=== PATIENT | male | born 1980 | race Caucasian/White ===

== ENCOUNTER 2016-12-20 19:27 | Emergency (ER) | payer OTHER ==
[2016-12-20 21:04] VITALS: BP 143/98
== END 2016-12-20 21:04 | disposition home or self-care (01) ==
LOC: ED 19:27
DX: F10.229 Alcohol dependence with intoxication, unspecified (principal)

== ENCOUNTER 2017-01-07 18:40 | Emergency (ER) | payer OTHER ==
[~2017-01-07] VITALS: Ht 177.8 cm; Wt 113.4 kg
[2017-01-07 20:01] VITALS: BP 139/69
== END 2017-01-07 20:01 | disposition other institution (70) ==
LOC: ED 18:40
DX: Z02.89 Encounter for other administrative examinations (principal)

== ENCOUNTER 2017-01-13 14:20 | Emergency (ER) | payer OTHER ==
[2017-01-13 15:37] VITALS: BP 139/95
== END 2017-01-13 15:37 | disposition home or self-care (01) ==
LOC: ED 14:20
DX: F10.129 Alcohol abuse with intoxication, unspecified (principal); S06.9X0A Unspecified intracranial injury without loss of consciousness, initial encounter; R03.0 Elevated blood-pressure reading, without diagnosis of hypertension; Z88.0 Allergy status to penicillin; X58.XXXA Exposure to other specified factors, initial encounter; Y93.89 Activity, other specified; Y99.8 Other external cause status; Y92.89 Other specified places as the place of occurrence of the external cause

== ENCOUNTER 2017-01-17 14:32 | Inpatient (IN) | payer OTHER ==
[~2017-01-17] VITALS: Ht 175.3 cm; Wt 105.8 kg
--- NOTE | 2017-01-17 14:46 | NUR ---
PT BIBA C/O SEIZURE EPISODE TODAY WHILE PT WAS WAITING FOR PRESCRIPTION TO BE FILLED UP. PT IS WITH HIS MOM. PT HAS HZ OF SEIZURE. PLACED PT ON CM, VSS. PT'S SIDERAILS UP X 2. PT GIVEN CALL LIGHT. AWAITING DR JOHNSON.
[2017-01-17 15:30] LABS: BASOPHIL % 0.4 % (0-2); PLATELET COUNT 214 x10^3mcL (130-400)
[2017-01-17 15:32] LABS: CALCIUM 8.8 mg/dL (8.5-10.1); CARBON DIOXIDE 19.2 mmol/L (21-32); CHLORIDE SERUM 101 mmol/L (98-107); CREATININE SERUM 1.4 mg/dL (0.7-1.3); GFR1 > 60 mL/min; GLUCOSE SERUM 139 mg/dL (74-106); POTASSIUM SERUM 3.8 mmol/L (3.5-5.1); SODIUM SERUM 140 mmol/L (136-145)
[2017-01-17 15:37] LABS: ALBUMIN 3.9 g/dL (3.4-5.0); ALKALINE PHOSPHATASE 88 U/L (46-116); AST/SGOT 98 U/L (15-37); BILIRUBIN TOTAL 0.7 mg/dL (0.20-1.00); TOTAL PROTEIN, SERUM 7.1 g/dL (6.4-8.2)
--- NOTE | 2017-01-17 15:40 | NUR ---
MEDICATED PT ORDERED, SEE MAR. WILL MONITOR FOR ADVERSE REACTIONS
[2017-01-17 15:48] LABS: FREE T4 0.77 ng/dL (0.76-1.46); FREE THYROXINE INDEX 2.2 ug/dL (1.4-4.5); RED CELL DISTRIBUTION WIDTH 16.2 % (11.5-14.5); T4(THYROXINE) 7.2 ug/dL (4.7-13.3)
[2017-01-17 16:16] LABS: T3 TOTAL 1.3 ng/mL
[2017-01-17 17:10] LABS: ALT/SGPT 62 U/L (16-63)
[2017-01-17] MEDS ORDERED: AMANTADINE HCL100 M1 PO (17:21)
[2017-01-17] MEDS ORDERED: COLCHICINE0.6 M1 PO (17:21)
[2017-01-17] MEDS ORDERED: ARICEPT5 MG PO (17:21)
[2017-01-17] MEDS ORDERED: LASIX20 MG PO (17:22)
[2017-01-17] MEDS ORDERED: KEPPRA500 MG PO (17:22)
[2017-01-17] MEDS ORDERED: ALLOPURINOL100 MG PO (17:22)
[2017-01-17 17:51] VITALS: BP 134/90
--- NOTE | 2017-01-17 18:06 | NUR ---
RECEIVED PATIENT FROM ED VIA GUERNEY, ALERT AND ORIENTED, MOTHER AT BEDSIDE, SEIZURE PRECATIONS IN PLACE, NO NAUSEA AT THIS TIME, ORIENTED PATIENT TO ROOM AND SURROUNDINGS, BED IN LOW POSITION, BED RAILS UP X 2, CALL LIGHT WITHIN REACH, WILL ENDORSE CARE TO TOD HANSON
--- NOTE | 2017-01-17 18:15 | NUR ---
ASSUMED CARE OF THIS PATIENT. AWAKE,ALERT AND ORIENTED X 3 WITH SOME FORGETFULNESS. WORD SEARCHING NOTED. NO REPORT OF PAIN. ABLE TO MOVE ALL EXTREMITIES WITHOUT DIFFICULTY. VITAL SIGNS WERE STABLE.
--- NOTE | 2017-01-17 19:30 | NUR ---
RECEIVED REPORT FROM MARGIE BARON. PT RESTING IN BED COMFORTABLY IN NO ACUTE DISTRESS OR DISCOMFORT. AAOX3. DENIES OF TERRY/DIZZINESS AT THIS TIME. ON TELE MON 40 ST. DENIES OF ANY CHEST DISCOMFORT. PER PULSES STRONG. NEG ON EDEMA. IN RA WITH SAT OF 98%. BREATHING EVENLY AND UNLABORED. NO SOB NOTED. LUNGS CTA. BS ACTIVE, ABD SOFT AND NON DISTENDED. LAST BM 01/16/17 FORMED STOOL PER PT. VOIDS FREELY WITHOUT ANY PAIN. GEN WEAKNESS. PT HAS R ANKLE OPEN SORE THAT IS BARRY. PHOTOGRAPH TAKEN. PT UNAWARE OF HOW IT WAS ACQUIRED. DENIES OF ANY PAIN AT THIS TIME. IV ON L HAND PATENT WITH NS RUNNING AT 80 CC/HR. SAFETY MEASURES ENSURED. FAMILY ON THE BEDSIDE. SZ AND ASPIRATION PREC ENFORCED. CALL LIGHT WITHIN REACH. WILL CONT TO CLOSELY MONITOR PT.
--- NOTE | 2017-01-17 19:45 | NUR ---
RECEIVED REPORT FROM MARGIE BARON. PT RESTING IN BED COMFORTABLY IN NO ACUTE DISTRESS OR DISCOMFORT. AAOX3. DENIES OF TERRY/DIZZINESS AT THIS TIME. ON TELE MON 4 SR. DENIES OF ANY CHEST DISCOMFORT. PER PULSES STRONG. NEG ON EDEMA. IN RA WITH SAT OF 98%. BREATHING EVENLY AND UNLABORED. NO SOB NOTED. LUNGS CTA. BS ACTIVE, ABD SOFT AND NON DISTENDED. LAST BM 01/16/17 FORMED STOOL PER PT. VOIDS FREELY WITHOUT ANY PAIN. GEN WEAKNESS. 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 PHOTOGRAPH TAKEN. PT UNAWARE OF HOW IT WAS ACQUIRED. DENIES OF ANY PAIN AT THIS TIME. IV ON L HAND PATENT WITH NS RUNNING AT 80 CC/HR. SAFETY MEASURES ENSURED. FAMILY ON THE BEDSIDE. SZ AND ASPIRATION PREC ENFORCED. CALL LIGHT WITHIN REACH. WILL CONT TO CLOSELY MONITOR PT.
[2017-01-17 20:19] LABS: CHOLESTEROL/HDL RATIO 2.4
[2017-01-17 21:26] VITALS: BP 130/83
--- NOTE | 2017-01-17 23:30 | NUR ---
PT ALERT AND AWAKE. IN NO ACUTE DISTRESS. ABLE TO OBEY COMMANDS. THOUGHT PROCESS COHERENT. NEG ON DROOP. SPEECH CLEAN. MEMORY INTACT. DENIES OF EXPERIENCING ANY AURA. SAFETY MEASURES ENSURED. PT ON SZ AND ASP PREC. HOB ELEVATED. CALL LIGHT WITHIN REACH. WILL CONT TO MONITOR PT.
--- NOTE | 2017-01-18 03:30 | NUR ---
PT EASILY AROUSABLE. CLEAR SPEECH. OBEYS COMMAND. THOUGHT PROCESS COHERENT. NEG ON PARALYSIS. DENIES OF AURA. AAOX4. SAFETY MEASURES ENSURED. CALL LIGHT WITHIN REACH,
[2017-01-18 04:49] LABS: microscopic required? NO
[2017-01-18 04:59] LABS: urine erythrocyte NEGATIVE (NEGATIVE)
[2017-01-18 05:02] LABS: AMPHETAMINE QUAL UR NONE DETECTED (NEG <=1000)
--- NOTE | 2017-01-18 05:17 | NUR ---
PT SLEPT COMFORTABLY THROUGH OUT THE NIGHT. WAS IN NO ACUTE DISTRESS OR DISCOMFORT. INSTRUCTED PT TO CALL IF EXPERIENCING AN AURA/HALLUCINATIONS. SAFETY MEASURES ENSURED. CALL LIGHT WITHIN REACH, SZ AND ASP PREC ENFORCED.
[2017-01-18 05:26] VITALS: BP 134/78
[2017-01-18 06:04] LABS: BASOPHIL % 0.2 % (0-2); PLATELET COUNT 155 x10^3mcL (130-400)
[2017-01-18 06:08] LABS: CALCIUM 8.1 mg/dL (8.5-10.1); CARBON DIOXIDE 25.4 mmol/L (21-32); CHLORIDE SERUM 102 mmol/L (98-107); CREATININE SERUM 0.8 mg/dL (0.7-1.3); GFR1 > 60 mL/min; GLUCOSE SERUM 95 mg/dL (74-106); MAGNESIUM 2.1 mg/dL (1.8-2.4); PHOSPHOROUS 4.2 mg/dL (2.5-4.9); SODIUM SERUM 140 mmol/L (136-145)
[2017-01-18 06:52] LABS: RED CELL DISTRIBUTION WIDTH 16.5 % (11.5-14.5)
--- NOTE | 2017-01-18 07:42 | NUR ---
PT RECEIVED DURING CHANGE OF SHIFT, A/OX4, SZ PRECAUTIONS, HX TRAUMATIC BRAIN INJURY, MESH TO LT SIDE OF HEAD, PT OBEYS COMMANDS, CLEAR SPEACH, EYES PERRLA, PT'S VERBAL RESPONSE SLIGHTLY DELAYED, DENIES CHEST PAIN, PULSES PRESENT NO EDEMA NOTED, LUNGS CTA ON RA, DENIES SOB, BREATHING EVEN AND UNLABORED, BOWEL SOUNDS ACTIVE, PT VOIDS USING URINAL, GENERALIZED WEAKNESS, DRESSING WITH TATE BANDAGE TO RT FOOT CDI, POST DEBRIDMENT, PT STATES PAIN IS TOLERABLE IN RT FOOT AT 2/10, IV TO LT HAND INFUSING NS AT 80ML/HR, IV WNL, NO REDNESS NO SWELLING, CALM AND COOPERATIVE, CALL LIGHT WITHIN REACH, WILL CONTINUE TO MONITOR.
--- NOTE | 2017-01-18 08:13 | NUR ---
DR. DHILLON AND RESIDENTS MAKING ROUNDS, PLAN OF CARE DISCUSSED.
--- NOTE | 2017-01-18 09:33 | NUR ---
PT DENIES SOB, DENIES PAIN, RECEIVED MED EDUCATION, CALL LIGHT WITHIN REACH, WILL CONTINUE TO MONITOR.
[2017-01-18 09:38] VITALS: BP 135/87
--- NOTE | 2017-01-18 10:19 | NUR ---
PT D/C'D OWN IV, WILL ATTEMPT TO INSERT NEW IV.
--- NOTE | 2017-01-18 11:46 | NUR ---
PT DENIES SOB, DENIES PAIN, WATCHING TV, CALL LIGHT WITHIN REACH, WILL CONTINUE TO MONITOR.
--- NOTE | 2017-01-18 12:24 | NUR ---
PT DENIES SOB, DENIES PAIN, WATCHING TV, CALL LIGHT WITHIN REACH, WILL CONTINUE TO MONITOR.
[2017-01-18 13:00] VITALS: BP 124/86
--- NOTE | 2017-01-18 13:07 | NUR ---
PT WATCHING TV, DENIES SOB, DENIES PAIN, CALL LIGHT WITHIN REACH, WILL CONTINUE TO MONITOR.
--- NOTE | 2017-01-18 14:38 | NUR ---
US OF LEGS FINISHED, DR. CYR SAW PT, DR. ROTH CURRENTLY AT BEDSIDE, MOTHER AT BEDSIDE, CALL LIGHT WITHIN REACH, WILL CONTINUE TO MONITOR.
--- NOTE | 2017-01-18 15:43 | NUR ---
PT DENIES SOB, DENIES PAIN, MOTHER AT BEDSIDE, CALL LIGHT WITHIN REACH, WILL CONTINUE TO MONITOR.
--- NOTE | 2017-01-18 16:50 | NUR ---
PT DENIES SOB, DENIES PAIN, MOTHER AT BEDSIDE, CALL LIGHT WITHIN REACH, WILL CONTINUE TO MONITOR.
--- NOTE | 2017-01-18 17:10 | NUR ---
PT'S DRESSING TO RT FOOT CHANGED, THERAHONEY APPLIED, ADAPTIC DRESSING, GUAZE, AND TATE BANDAGE APPLIED.
--- NOTE | 2017-01-18 18:11 | NUR ---
PT C/O BURNING IN IV AFTER POTASSIUM WAS STARTED, RATE DOWN TO 40ML/HR, PT MADE AWARE TO NOTIFY RN IF BURNING CONTINUES, CALL LIGHT WITHIN REACH, WILL ENDORSE PT TO NEXT SHIFT.
[2017-01-18 18:33] VITALS: BP 134/91
[2017-01-18 19:15] VITALS: BP 131/84
--- NOTE | 2017-01-18 19:15 | NUR ---
RECEIVED PT AWAKE ALERT TO NAME PLACE AND BIRTHDATE,SLOW TO RESPONSE BUT ANSWERS QUESTIONS APPROPRIATELY.ON SEIZURE PRECAUTIONS.PADDED RAILS IN PLACE.NO SEIZURE ACTIVITY NOTED AT THIS TIME.DENIES ANY PAIN AT THIS TIME.BP 131/84 MMHG,HR 70.DRESSING TO R FOOT,WRAPPED WITH TATE WRAP.ENCOURAGED TO CALL FOR ASSISTANCE AT ALL TIMES.WILL CONTINUE TO MONITOR.
[2017-01-18 21:33] VITALS: BP 145/94
--- NOTE | 2017-01-19 04:55 | NUR ---
PT SLEPT WELL ALL NIGHT.NO SEIZURE ACTIVITY NOTED.PADDED RAILS IN PLACED.ON ATIVAN 1 MG PO RTC FOR ALCOHOL WITHDRAWAL PROTOCOL.TOLERATED K-RIDER GIVEN LAST NIGHT.ALL NEEDS MET.WILL CONTINUE TO MONITOR.
[2017-01-19 05:56] VITALS: BP 129/91
[2017-01-19 06:08] LABS: BASOPHIL % 0.4 % (0-2); PLATELET COUNT 142 x10^3mcL (130-400)
[2017-01-19 06:28] LABS: CALCIUM 8.4 mg/dL (8.5-10.1); CHLORIDE SERUM 106 mmol/L (98-107); CREATININE SERUM 0.8 mg/dL (0.7-1.3); GFR1 > 60 mL/min; GLUCOSE SERUM 93 mg/dL (74-106); MAGNESIUM 1.9 mg/dL (1.8-2.4); POTASSIUM SERUM 3.3 mmol/L (3.5-5.1); SODIUM SERUM 143 mmol/L (136-145)
[2017-01-19 06:48] LABS: RED CELL DISTRIBUTION WIDTH 16.3 % (11.5-14.5)
--- NOTE | 2017-01-19 06:50 | NUR ---
BP THIS AM REPORTED @ 129/91 MMHG,HR 111.BP RECHECKED @ 128/84 MMHG,HR 98.DENIES CHESTPAIN.WILL CONTINUE TO MONITOR.
[2017-01-19 06:51] VITALS: BP 128/84
--- NOTE | 2017-01-19 07:27 | NUR ---
PT RECEIVED DURING CHANGE OF SHIFT, PT ASLEEP BUT AROUSABLE, A/OX3, OBEYS COMMANDS, SPEACH SLOW AND CLEAR, NO TELE, DENIES CHEST PAIN, PULSES PRESENT NO EDEMA NOTED, LUNGS CTA ON RA, DENIES SOB, BREATHING EVEN AND UNLABORED, LBM 01/16/17, PT ABLE TO VOID, MILD GENERALIZED WEAKNESS, DRESSING TO RT FOOT CDI, WILL CHANGE DRESSING PER ORDERS, DENIES PAIN AT THIS TIME, IV TO LT HAND INFUSING NS AT 80ML/HR, CALL LIGHT WITHIN REACH, WILL CONTINUE TO MONITOR.
--- NOTE | 2017-01-19 08:55 | NUR ---
PT DENIES PAIN, DENIES SOB, WATCHING TV, CALL LIGHT WITHIN REACH, WILL CONTINUE TO MONITOR.
[2017-01-19 08:58] VITALS: BP 138/85
--- NOTE | 2017-01-19 10:13 | NUR ---
PT DENIES SOB, DENIES PAIN, WATCHING TV, CALL LIGHT WITHIN REACH, WILL CONTINUE TO MONITOR.
[2017-01-19 10:27] VITALS: BP 138/85
--- NOTE | 2017-01-19 11:12 | NUR ---
PT DENIES SOB, DENIES PAIN, MOTHER CALLED TO ASK ABOUT PLAN OF CARE, CALL LIGHT WITHIN REACH, WILL CONTINUE TO MONITOR.
--- NOTE | 2017-01-19 12:38 | NUR ---
PT DENIES SOB, DENIES PAIN, EATING LUNCH, CALL LIGHT WITHIN REACH, WILL CONTINUE TO MONITOR.
[2017-01-19] MEDS ORDERED: KEP500 PO (12:40)
[2017-01-19 12:49] VITALS: BP 131/83
--- NOTE | 2017-01-19 13:11 | NUR ---
PT DENIES SOB, DENIES PAIN, WATCHING TV, CALL LIGHT WITHIN REACH, PT AT 70% OF LUNCH, CALL LIGHT WITHIN REACH, WILL CONTINUE TO MONITOR.
--- NOTE | 2017-01-19 14:06 | NUR ---
PT'S DRESSING CHANGED PER 'S ORDERS, PHOTO DOCUMENTATION TAKEN, NO S/S OF INFECTION, DISCHARGE INSTRUCTIONS GIVEN TO PT AND FATHER, VERBALIZED UNDERSTANINDING, ALL QUESTIONS ANSWERED, IV DC'D CATHETER INTACT, ARMBAND DC'D, SUPPLIES FOR DRESSING CHANGE GIVEN, PT AND VISITORS ESCORTED DOWNSTAIRS BY PHILIP RYAN.
== END 2017-01-19 14:10 | disposition home or self-care (01) | DRG 26 ==
LOC: ED 14:32 → DU 16:51
PROVIDERS: Family Medicine; Specialist; ADMIT Family Medicine
PROC: 0HBMXZZ Excision of Right Foot Skin, External Approach (ICD-10-PCS; principal; 2017-01-18)
DX: G40.901 Epilepsy, unspecified, not intractable, with status epilepticus (principal); N17.0 Acute kidney failure with tubular necrosis; K72.90 Hepatic failure, unspecified without coma; F10.10 Alcohol abuse, uncomplicated; E78.5 Hyperlipidemia, unspecified; L97.311 Non-pressure chronic ulcer of right ankle limited to breakdown of skin; M10.9 Gout, unspecified; Z87.820 Personal history of traumatic brain injury; Z68.34 Body mass index [BMI] 34.0-34.9, adult
CPT/HCPCS: 80307; 83880; 84439; G0480; J1940; J1953; J2405; J3480; J3490; J7030; Q0092

== ENCOUNTER 2017-02-18 17:56 | Emergency (ER) | payer OTHER ==
[~2017-02-18] VITALS: Ht 172.7 cm; Wt 104.3 kg
[~2017-02-18 17:56] MED LIST: ALLOPURINOL100 MG PO; AMANTADINE HCL100 M1 PO; ARICEPT5 MG PO; COLCHICINE0.6 M1 PO; KEP500 PO; KEPPRA500 MG PO; LASIX20 MG PO
[2017-02-18 18:16] VITALS: BP 152/91
== END 2017-02-18 18:48 | disposition other institution (70) ==
LOC: ED 17:56
DX: S60.512A Abrasion of left hand, initial encounter (principal); S60.511A Abrasion of right hand, initial encounter; G40.909 Epilepsy, unspecified, not intractable, without status epilepticus; F10.129 Alcohol abuse with intoxication, unspecified; M10.9 Gout, unspecified; Z79.899 Other long term (current) drug therapy; Z88.0 Allergy status to penicillin; W22.8XXA Striking against or struck by other objects, initial encounter; Y93.89 Activity, other specified; Y92.89 Other specified places as the place of occurrence of the external cause; Y99.8 Other external cause status

== ENCOUNTER 2017-06-25 10:41 | Inpatient (IN) | payer OTHER ==
[~2017-06-25] VITALS: Ht 175.3 cm; Wt 99.3 kg
[2017-06-25 11:21] LABS: BASOPHIL % 0.6 % (0-2); PLATELET COUNT 164 x10^3mcL (130-400)
[2017-06-25 11:26] LABS: RED CELL DISTRIBUTION WIDTH 15.7 % (11.5-14.5)
[2017-06-25 11:27] LABS: CALCIUM 8.6 mg/dL (8.5-10.1); CARBON DIOXIDE 20.3 mmol/L (21-32); CHLORIDE SERUM 100 mmol/L (98-107); CREATININE SERUM 0.7 mg/dL (0.7-1.3); GFR1 > 60 mL/min; GLUCOSE SERUM 84 mg/dL (74-106); POTASSIUM SERUM 3.7 mmol/L (3.5-5.1); SODIUM SERUM 138 mmol/L (136-145)
[2017-06-25 11:34] LABS: ALBUMIN 4.2 g/dL (3.4-5.0); ALKALINE PHOSPHATASE 94 U/L (46-116); ALT/SGPT 182 U/L (16-63); AST/SGOT 264 U/L (15-37); BILIRUBIN TOTAL 1.8 mg/dL (0.20-1.00); TOTAL PROTEIN, SERUM 7.6 g/dL (6.4-8.2)
[2017-06-25 13:34] VITALS: BP 133/85
[2017-06-25 13:51] VITALS: BP 133/85
[2017-06-25 14:11] LABS: UA SPECIFIC GRAVITY 1.025 (1.005-1.035); microscopic required? YES; urine erythrocyte TRACE (NEGATIVE)
[2017-06-25 18:18] VITALS: BP 134/86
[2017-06-25 18:29] LABS: T3 TOTAL 1.32 ng/mL
[2017-06-25 18:38] LABS: MAGNESIUM 1.6 mg/dL (1.8-2.4)
[2017-06-25 18:44] LABS: FREE THYROXINE INDEX 2.9 ug/dL (1.4-4.5)
[2017-06-25 18:45] LABS: CHOLESTEROL/HDL RATIO 3.2
[2017-06-25 21:59] VITALS: BP 135/85
[2017-06-25 22:03] LABS: AMPHETAMINE QUAL UR POSITIVE (NEG <=1000)
[2017-06-26 06:18] VITALS: BP 121/81
[2017-06-26 06:40] LABS: BASOPHIL % 0.4 % (0-2); PLATELET COUNT 133 x10^3mcL (130-400)
[2017-06-26 06:51] LABS: CALCIUM 8.1 mg/dL (8.5-10.1); CARBON DIOXIDE 25.8 mmol/L (21-32); CHLORIDE SERUM 101 mmol/L (98-107); CREATININE SERUM 0.6 mg/dL (0.7-1.3); GFR1 > 60 mL/min; GLUCOSE SERUM 88 mg/dL (74-106); MAGNESIUM 2.3 mg/dL (1.8-2.4); PHOSPHOROUS 2.6 mg/dL (2.5-4.9); POTASSIUM SERUM 3.6 mmol/L (3.5-5.1); SODIUM SERUM 138 mmol/L (136-145)
[2017-06-26 07:00] LABS: RED CELL DISTRIBUTION WIDTH 15.6 % (11.5-14.5)
[2017-06-26 09:20] VITALS: BP 134/77
[2017-06-26] MEDS ORDERED: [UNRECOGNIZED DRUG - OTHER] OS (16:37)
[2017-06-26 17:38] VITALS: BP 108/78
== END 2017-06-26 18:45 | disposition home or self-care (01) | DRG 82 ==
LOC: ED 10:41 → DU 12:13
PROVIDERS: Emergency Medicine; ADMIT Family Medicine
DX: H10.9 Unspecified conjunctivitis (principal); R56.9 Unspecified convulsions; F10.239 Alcohol dependence with withdrawal, unspecified; Z88.0 Allergy status to penicillin; Y90.9 Presence of alcohol in blood, level not specified; E78.5 Hyperlipidemia, unspecified; M10.9 Gout, unspecified
CPT/HCPCS: 83880; 84439; 90658; G0480; J2060; J3411; J3475; J3490; J7030; Q0092

== ENCOUNTER 2017-10-24 02:14 | Emergency (ER) | payer OTHER ==
[~2017-10-24] VITALS: Ht 172.7 cm; Wt 99.8 kg
[~2017-10-24 02:14] MED LIST changes: +[UNRECOGNIZED DRUG - OTHER] OS
[2017-10-24 02:28] VITALS: Ht 172.7 cm; Wt 99.8 kg
[2017-10-24 03:51] LABS: BASOPHIL % 0.9 % (0-2); PLATELET COUNT 236 x10^3mcL (130-400); RED CELL DISTRIBUTION WIDTH 13.4 % (11.5-14.5)
[2017-10-24 04:53] LABS: SODIUM SERUM 149 mmol/L (136-145)
[2017-10-24 04:54] LABS: ALBUMIN 4.1 g/dL (3.4-5.0); CALCIUM 8.3 mg/dL (8.5-10.1); CARBON DIOXIDE 27 mmol/L (21-32); CHLORIDE SERUM 109 mmol/L (98-107); CREATININE SERUM 0.8 mg/dL (0.7-1.3); GFR1 > 60 mL/min; GLUCOSE SERUM 94 mg/dL (74-106); POTASSIUM SERUM 4.2 mmol/L (3.5-5.1); TOTAL PROTEIN, SERUM 7.3 g/dL (6.4-8.2)
[2017-10-24 04:55] LABS: ALKALINE PHOSPHATASE 89 U/L (46-116); ALT/SGPT 140 U/L (16-63); AST/SGOT 130 U/L (15-37); BILIRUBIN TOTAL 0.4 mg/dL (0.20-1.00)
[2017-10-24 07:26] VITALS: BP 110/60
[2017-10-24 07:56] LABS: AMPHETAMINE QUAL UR NONE DETECTED (NEG <=1000)
== END 2017-10-24 07:26 | disposition home or self-care (01) ==
LOC: ED 02:14
PROVIDERS: Emergency Medicine
DX: M62.838 Other muscle spasm (principal); Z88.0 Allergy status to penicillin
CPT/HCPCS: 36415; J7030

== ENCOUNTER 2017-10-24 14:45 | Emergency (ER) | payer OTHER ==
[~2017-10-24] VITALS: Ht 175.3 cm; Wt 99.8 kg
[2017-10-24 14:48] VITALS: Ht 175.3 cm; Wt 99.8 kg
[2017-10-24 15:35] LABS: CALCIUM 8.1 mg/dL (8.5-10.1); CARBON DIOXIDE 23.3 mmol/L (21-32); CHLORIDE SERUM 109 mmol/L (98-107); CREATININE SERUM 0.9 mg/dL (0.7-1.3); GFR1 > 60 mL/min; GLUCOSE SERUM 99 mg/dL (74-106); POTASSIUM SERUM 3.4 mmol/L (3.5-5.1); SODIUM SERUM 149 mmol/L (136-145)
[2017-10-24 19:12] VITALS: BP 110/64
== END 2017-10-24 19:13 | disposition home or self-care (01) ==
LOC: ED 14:45
PROVIDERS: Emergency Medicine
DX: F10.129 Alcohol abuse with intoxication, unspecified (principal); G31.2 Degeneration of nervous system due to alcohol; Z88.0 Allergy status to penicillin

== ENCOUNTER 2018-09-27 05:52 | Emergency (ER) | payer OTHER ==
[~2018-09-27] VITALS: Ht 167.6 cm; Wt 111.1 kg
[2018-09-27 06:01] VITALS: Ht 167.6 cm; Wt 111.1 kg
[2018-09-27 06:52] LABS: BASOPHIL % 0.3 % (0-2); RED CELL DISTRIBUTION WIDTH 14.1 % (11.5-14.5)
[2018-09-27 07:04] LABS: CALCIUM 8.3 mg/dL (8.5-10.1); CARBON DIOXIDE 13.6 mmol/L (21-32); CHLORIDE SERUM 102 mmol/L (98-107); CREATININE SERUM 1.3 mg/dL (0.7-1.3); GFR1 > 60 mL/min; GLUCOSE SERUM 147 mg/dL (74-106); POTASSIUM SERUM 3.4 mmol/L (3.5-5.1); SODIUM SERUM 141 mmol/L (136-145)
[2018-09-27 07:08] LABS: ALBUMIN 3.7 g/dL (3.4-5.0); ALKALINE PHOSPHATASE 91 U/L (46-116); ALT/SGPT 188 U/L (16-63); AST/SGOT 244 U/L (15-37); BILIRUBIN TOTAL 0.7 mg/dL (0.20-1.00); MAGNESIUM 1.9 mg/dL (1.8-2.4)
[2018-09-27 07:09] LABS: PLATELET COUNT 122 x10^3mcL (130-400)
[2018-09-27 08:36] VITALS: BP 146/82
== END 2018-09-27 09:18 | disposition home or self-care (01) ==
LOC: ED 05:52
PROVIDERS: Emergency Medicine
DX: R56.9 Unspecified convulsions (principal); R20.2 Paresthesia of skin; R11.2 Nausea with vomiting, unspecified; F10.10 Alcohol abuse, uncomplicated; Z88.0 Allergy status to penicillin
CPT/HCPCS: 82962; G0480; J1953; J2060; J2405

== ENCOUNTER 2019-01-17 19:36 | Emergency (ER) | payer OTHER ==
[~2019-01-17] VITALS: Ht 175.3 cm; Wt 116.6 kg
[2019-01-17 19:41] VITALS: Ht 175.3 cm; Wt 116.6 kg
[2019-01-18 08:31] VITALS: BP 134/75
== END 2019-01-18 08:31 | disposition home or self-care (01) ==
LOC: ED 19:36
DX: F10.129 Alcohol abuse with intoxication, unspecified (principal)
CPT/HCPCS: J2405; J3411; J3475; J3490; J7030; Q0092

== ENCOUNTER 2019-01-19 19:22 | Emergency (ER) | payer OTHER ==
[~2019-01-19] VITALS: Ht 170.2 cm; Wt 112.9 kg
[2019-01-19 19:31] VITALS: Ht 170.2 cm; Wt 112.9 kg
[2019-01-19 22:10] VITALS: BP 105/59
== END 2019-01-19 22:10 | disposition home or self-care (01) ==
LOC: ED 19:22
DX: F10.239 Alcohol dependence with withdrawal, unspecified (principal); M10.9 Gout, unspecified; Z88.0 Allergy status to penicillin
CPT/HCPCS: J2060

== ENCOUNTER 2019-01-25 08:37 | Emergency (ER) | payer OTHER ==
[~2019-01-25] VITALS: Ht 170.2 cm; Wt 112.9 kg
[2019-01-25 08:44] VITALS: Ht 170.2 cm; Wt 112.9 kg
[2019-01-25 10:09] LABS: CALCIUM 8.2 mg/dL (8.5-10.1); CARBON DIOXIDE 19.9 mmol/L (21-32); CHLORIDE SERUM 103 mmol/L (98-107); CREATININE SERUM 0.8 mg/dL (0.7-1.3); GFR1 > 60 mL/min; GLUCOSE SERUM 96 mg/dL (74-106); POTASSIUM SERUM 3.8 mmol/L (3.5-5.1); SODIUM SERUM 140 mmol/L (136-145)
[2019-01-25 10:15] LABS: ALKALINE PHOSPHATASE 83 U/L (46-116); ALT/SGPT 70 U/L (16-63); AST/SGOT 68 U/L (15-37); BILIRUBIN TOTAL 0.77 mg/dL (0.20-1.00); MAGNESIUM 1.6 mg/dL (1.8-2.4); TOTAL PROTEIN, SERUM 7.3 g/dL (6.4-8.2)
[2019-01-25 10:37] LABS: BASOPHIL % 0.3 % (0-2); PLATELET COUNT 142 x10^3mcL (130-400); RED CELL DISTRIBUTION WIDTH 13.4 % (11.5-14.5)
[2019-01-25 14:06] VITALS: BP 140/78
== END 2019-01-25 14:11 | disposition home or self-care (01) ==
LOC: ED 08:37
PROVIDERS: Emergency Medicine
DX: F10.239 Alcohol dependence with withdrawal, unspecified (principal); G40.909 Epilepsy, unspecified, not intractable, without status epilepticus; Z88.0 Allergy status to penicillin
CPT/HCPCS: G0480; J1953; J2060; J3411; J3475; J3490; J7030

== ENCOUNTER 2019-02-22 11:23 | Emergency (ER) | payer OTHER ==
[~2019-02-22] VITALS: Ht 175.3 cm; Wt 115.7 kg
[2019-02-22 11:55] VITALS: Ht 175.3 cm; Wt 115.7 kg
[2019-02-22 13:17] LABS: BASOPHIL % 0.5 % (0-2); PLATELET COUNT 169 x10^3mcL (130-400); RED CELL DISTRIBUTION WIDTH 13.5 % (11.5-14.5)
[2019-02-22 13:52] LABS: CALCIUM 8.9 mg/dL (8.5-10.1); CARBON DIOXIDE 14.9 mmol/L (21-32); CHLORIDE SERUM 101 mmol/L (98-107); CREATININE SERUM 0.8 mg/dL (0.7-1.3); GFR1 > 60 mL/min; GLUCOSE SERUM 108 mg/dL (74-106); SODIUM SERUM 140 mmol/L (136-145)
[2019-02-22 13:57] LABS: ALBUMIN 3.9 g/dL (3.4-5.0); ALKALINE PHOSPHATASE 70 U/L (46-116); ALT/SGPT 67 U/L (16-63); AST/SGOT 57 U/L (15-37); BILIRUBIN TOTAL 1.5 mg/dL (0.20-1.00); TOTAL PROTEIN, SERUM 7.5 g/dL (6.4-8.2)
[2019-02-22] MEDS ORDERED: KEPPRA500 MG PO (14:10)
[2019-02-22] MEDS ORDERED: LACTULOSE10 GM/152 PO (14:10)
[2019-02-22 14:56] LABS: microscopic required? NO
[2019-02-22 15:01] LABS: UA SPECIFIC GRAVITY 1.015 (1.005-1.035); urine erythrocyte NEGATIVE (NEGATIVE)
[2019-02-22 16:37] VITALS: BP 124/74
== END 2019-02-22 16:37 | disposition home or self-care (01) ==
LOC: ED 11:23
PROVIDERS: Specialist
DX: F10.129 Alcohol abuse with intoxication, unspecified (principal); M10.9 Gout, unspecified; F41.9 Anxiety disorder, unspecified; Z88.0 Allergy status to penicillin; Z98.890 Other specified postprocedural states
CPT/HCPCS: G0480; J2060; J7030

== ENCOUNTER 2019-03-27 17:42 | Emergency (ER) | payer OTHER ==
[~2019-03-27] VITALS: Ht 180.3 cm; Wt 113.4 kg
[~2019-03-27 17:42] MED LIST changes: +LACTULOSE10 GM/152 PO
[2019-03-27 17:46] VITALS: Ht 180.3 cm; Wt 113.4 kg
[2019-03-27 21:52] VITALS: BP 112/67
== END 2019-03-27 21:52 | disposition home or self-care (01) ==
LOC: ED 17:42
DX: F41.9 Anxiety disorder, unspecified (principal); F43.10 Post-traumatic stress disorder, unspecified; G40.909 Epilepsy, unspecified, not intractable, without status epilepticus; E66.9 Obesity, unspecified; F10.10 Alcohol abuse, uncomplicated; Z98.890 Other specified postprocedural states; Z88.0 Allergy status to penicillin; Z68.34 Body mass index [BMI] 34.0-34.9, adult; Y04.0XXA Assault by unarmed brawl or fight, initial encounter
CPT/HCPCS: J2060

== ENCOUNTER 2019-05-04 01:54 | Emergency (ER) | payer OTHER ==
[~2019-05-04] VITALS: Ht 175.3 cm; Wt 113.4 kg
[2019-05-04 02:01] VITALS: Ht 175.3 cm; Wt 113.4 kg
[2019-05-04 05:39] VITALS: BP 110/60
== END 2019-05-04 05:39 | disposition home or self-care (01) ==
LOC: ED 01:54
DX: F10.129 Alcohol abuse with intoxication, unspecified (principal); M10.9 Gout, unspecified; Z98.890 Other specified postprocedural states; Z88.0 Allergy status to penicillin

== ENCOUNTER 2019-05-31 23:47 | Emergency (ER) | payer OTHER ==
[~2019-05-31] VITALS: Ht 170.2 cm; Wt 90.7 kg
[2019-05-31 23:50] VITALS: Ht 170.2 cm; Wt 90.7 kg
[2019-06-01 03:49] VITALS: BP 120/68
== END 2019-06-01 03:49 | disposition home or self-care (01) ==
LOC: ED 23:47
DX: F10.129 Alcohol abuse with intoxication, unspecified (principal); Z88.0 Allergy status to penicillin; Z98.890 Other specified postprocedural states

== ENCOUNTER 2019-07-29 11:17 | Inpatient (IN) | payer OTHER ==
[~2019-07-29] VITALS: Ht 177.8 cm; Wt 117.9 kg
[2019-07-29 11:54] LABS: CALCIUM 8.2 mg/dL (8.5-10.1); CARBON DIOXIDE 25.2 mmol/L (21-32); CHLORIDE SERUM 106 mmol/L (98-107); CREATININE SERUM 0.7 mg/dL (0.7-1.3); GFR1 > 60 mL/min; GLUCOSE SERUM 93 mg/dL (74-106); POTASSIUM SERUM 3.9 mmol/L (3.5-5.1); SODIUM SERUM 145 mmol/L (136-145)
[2019-07-29 12:00] LABS: PLATELET COUNT 174 x10^3mcL (130-400)
[2019-07-29 12:01] LABS: BASOPHIL % 0.6 % (0-2)
[2019-07-29 15:17] LABS: T3 TOTAL 1.25 ng/mL
[2019-07-29 15:19] LABS: MAGNESIUM 1.8 mg/dL (1.8-2.4)
[2019-07-29 15:29] LABS: FREE T4 1.02 ng/dL (0.76-1.46); FREE THYROXINE INDEX 3.2 ug/dL (1.4-4.5); T4(THYROXINE) 9.9 ug/dL (4.7-13.3)
[2019-07-29 15:58] LABS: CHOLESTEROL/HDL RATIO 3.8
[2019-07-29 17:00] VITALS: BP 111/69
[2019-07-29 17:10] VITALS: BP 115/74
[2019-07-29 17:16] LABS: microscopic required? NO
[2019-07-29 17:31] LABS: UA SPECIFIC GRAVITY <=1.005 (1.005-1.035); urine erythrocyte NEGATIVE (NEGATIVE)
[2019-07-29 17:39] LABS: AMPHETAMINE QUAL UR NONE DETECTED (See below)
[2019-07-29 20:58] VITALS: BP 104/59
[2019-07-30 04:23] VITALS: BP 142/81
[2019-07-30 07:00] LABS: BASOPHIL % 0.6 % (0-2)
[2019-07-30 07:12] LABS: ALBUMIN 3.4 g/dL (3.4-5.0); ALKALINE PHOSPHATASE 80 U/L (46-116); ALT/SGPT 84 U/L (16-63); AST/SGOT 92 U/L (15-37); BILIRUBIN TOTAL 1.1 mg/dL (0.20-1.00); CARBON DIOXIDE 25.6 mmol/L (21-32); CHLORIDE SERUM 104 mmol/L (98-107); CREATININE SERUM 0.8 mg/dL (0.7-1.3); GFR1 > 60 mL/min; GLUCOSE SERUM 119 mg/dL (74-106); POTASSIUM SERUM 3.5 mmol/L (3.5-5.1); SODIUM SERUM 142 mmol/L (136-145); TOTAL PROTEIN, SERUM 6.8 g/dL (6.4-8.2)
[2019-07-30 07:31] LABS: MAGNESIUM 1.5 mg/dL (1.8-2.4); PHOSPHOROUS 3.4 mg/dL (2.5-4.9)
[2019-07-30 08:58] LABS: PLATELET COUNT 118 x10^3mcL (130-400); RED CELL DISTRIBUTION WIDTH 14.8 % (11.5-14.5)
[2019-07-30 11:01] VITALS: BP 145/87
[2019-07-30 12:52] VITALS: BP 154/88
[2019-07-30 17:03] VITALS: BP 144/99
[2019-07-30 21:39] VITALS: BP 142/90
[2019-07-31 05:26] VITALS: BP 130/73
[2019-07-31 06:44] LABS: BASOPHIL % 0.4 % (0-2); RED CELL DISTRIBUTION WIDTH 14.4 % (11.5-14.5)
[2019-07-31 07:21] LABS: CALCIUM 8.1 mg/dL (8.5-10.1); CARBON DIOXIDE 27.1 mmol/L (21-32); CHLORIDE SERUM 104 mmol/L (98-107); CREATININE SERUM 0.7 mg/dL (0.7-1.3); GFR1 > 60 mL/min; GLUCOSE SERUM 102 mg/dL (74-106); MAGNESIUM 2.2 mg/dL (1.8-2.4); PHOSPHOROUS 3.3 mg/dL (2.5-4.9); POTASSIUM SERUM 3.1 mmol/L (3.5-5.1); SODIUM SERUM 142 mmol/L (136-145)
[2019-07-31 07:48] LABS: PLATELET COUNT 83 x10^3mcL (130-400)
[2019-07-31 08:51] VITALS: BP 131/88
[2019-07-31 12:29] VITALS: BP 141/94
[2019-07-31 17:53] VITALS: BP 113/71
[2019-07-31 22:12] VITALS: Ht 177.8 cm; Wt 117.9 kg
[2019-07-31 22:15] VITALS: BP 128/92
[2019-08-01 06:13] LABS: BASOPHIL % 0.3 % (0-2); RED CELL DISTRIBUTION WIDTH 14.5 % (11.5-14.5)
[2019-08-01 06:22] VITALS: BP 114/78
[2019-08-01 06:32] LABS: PLATELET COUNT 79 x10^3mcL (130-400)
[2019-08-01 08:37] LABS: CALCIUM 8.5 mg/dL (8.5-10.1); CARBON DIOXIDE 25.2 mmol/L (21-32); CHLORIDE SERUM 106 mmol/L (98-107); CREATININE SERUM 0.6 mg/dL (0.7-1.3); GFR1 > 60 mL/min; GLUCOSE SERUM 91 mg/dL (74-106); PHOSPHOROUS 3.9 mg/dL (2.5-4.9); POTASSIUM SERUM 3.1 mmol/L (3.5-5.1); SODIUM SERUM 144 mmol/L (136-145)
[2019-08-01 09:09] VITALS: BP 127/79
[2019-08-01 13:12] VITALS: BP 121/80
[2019-08-01 16:06] VITALS: BP 126/81
[2019-08-01 20:40] VITALS: BP 112/73
[2019-08-02 06:03] VITALS: BP 97/67
[2019-08-02 08:09] VITALS: BP 115/72
[2019-08-02 08:28] VITALS: BP 115/72
[2019-08-02] MEDS ORDERED: KEPPRA1000 M1 PO (09:30)
[2019-08-02] MEDS ORDERED: KEP500 PO (09:31)
[2019-08-02 11:30] VITALS: BP 124/87
== END 2019-08-02 13:11 | disposition home or self-care (01) | DRG 53 ==
LOC: ED 11:17 → DU 14:41
PROVIDERS: Emergency Medicine; ADMIT Internal Medicine
DX: G40.909 Epilepsy, unspecified, not intractable, without status epilepticus (principal); E78.5 Hyperlipidemia, unspecified; F10.129 Alcohol abuse with intoxication, unspecified; F15.10 Other stimulant abuse, uncomplicated; F12.10 Cannabis abuse, uncomplicated; Y90.0 Blood alcohol level of less than 20 mg/100 ml; F32.9 Major depressive disorder, single episode, unspecified; M10.9 Gout, unspecified; Z68.30 Body mass index [BMI] 30.0-30.9, adult; Z87.820 Personal history of traumatic brain injury; Z88.0 Allergy status to penicillin
CPT/HCPCS: 84439; 85378; G0378; G0480; J1953; J2405; J3475; J7030; Q0092

== ENCOUNTER 2019-08-25 02:06 | Emergency (ER) | payer OTHER ==
[~2019-08-25] VITALS: Ht 167.6 cm; Wt 111.1 kg
[~2019-08-25 02:06] MED LIST changes: +KEPPRA1000 M1 PO
[2019-08-25 02:15] VITALS: Ht 167.6 cm; Wt 111.1 kg
[2019-08-25 03:34] LABS: BASOPHIL % 0.4 % (0-2); PLATELET COUNT 184 x10^3mcL (130-400); RED CELL DISTRIBUTION WIDTH 14.5 % (11.5-14.5)
[2019-08-25 04:04] LABS: CALCIUM 8.5 mg/dL (8.5-10.1); CARBON DIOXIDE 20.3 mmol/L (21-32); CHLORIDE SERUM 107 mmol/L (98-107); CREATININE SERUM 0.8 mg/dL (0.7-1.3); GFR1 > 60 mL/min; GLUCOSE SERUM 102 mg/dL (74-106); POTASSIUM SERUM 3.9 mmol/L (3.5-5.1); SODIUM SERUM 144 mmol/L (136-145)
[2019-08-25 04:09] LABS: ALBUMIN 4.3 g/dL (3.4-5.0); ALKALINE PHOSPHATASE 80 U/L (46-116); ALT/SGPT 178 U/L (16-63); AST/SGOT 124 U/L (15-37); BILIRUBIN TOTAL 0.41 mg/dL (0.20-1.00); TOTAL PROTEIN, SERUM 7.9 g/dL (6.4-8.2)
[2019-08-25 08:03] VITALS: BP 137/85
== END 2019-08-25 08:03 | disposition home or self-care (01) ==
LOC: ED 02:06
PROVIDERS: Emergency Medicine
DX: F10.129 Alcohol abuse with intoxication, unspecified (principal); R56.9 Unspecified convulsions; Z88.0 Allergy status to penicillin
CPT/HCPCS: 36415; G0480; J7030

== ENCOUNTER 2019-10-02 21:59 | Emergency (ER) | payer OTHER ==
[~2019-10-02] VITALS: Ht 180.3 cm; Wt 124.7 kg
[2019-10-02 22:23] VITALS: Ht 180.3 cm; Wt 124.7 kg
[2019-10-02 23:02] LABS: BASOPHIL % 0.2 % (0-2); PLATELET COUNT 140 x10^3mcL (130-400)
[2019-10-02 23:15] LABS: CARBON DIOXIDE 26.1 mmol/L (21-32); CHLORIDE SERUM 110 mmol/L (98-107); CREATININE SERUM 0.8 mg/dL (0.7-1.3); GFR1 > 60 mL/min; GLUCOSE SERUM 111 mg/dL (74-106); POTASSIUM SERUM 3.7 mmol/L (3.5-5.1); SODIUM SERUM 147 mmol/L (136-145)
[2019-10-02 23:18] LABS: ALBUMIN 3.9 g/dL (3.4-5.0); TOTAL PROTEIN, SERUM 7.6 g/dL (6.4-8.2)
[2019-10-02 23:19] LABS: ALKALINE PHOSPHATASE 64 U/L (46-116); ALT/SGPT 88 U/L (16-63); AST/SGOT 90 U/L (15-37); BILIRUBIN TOTAL 0.4 mg/dL (0.20-1.00); CALCIUM 8.4 mg/dL (8.5-10.1); MAGNESIUM 1.9 mg/dL (1.8-2.4)
[2019-10-03 01:37] LABS: microscopic required? NO
[2019-10-03 01:53] LABS: UA SPECIFIC GRAVITY <=1.005 (1.005-1.035); urine erythrocyte NEGATIVE (NEGATIVE)
[2019-10-03 06:29] VITALS: BP 138/79
== END 2019-10-03 06:29 | disposition home or self-care (01) ==
LOC: ED 21:59
PROVIDERS: Emergency Medicine
DX: F10.129 Alcohol abuse with intoxication, unspecified (principal); Z88.0 Allergy status to penicillin; Z98.890 Other specified postprocedural states
CPT/HCPCS: G0480; J2060; J7030

== ENCOUNTER 2020-01-16 20:30 | Emergency (ER) | payer OTHER ==
[~2020-01-16] VITALS: Ht 172.7 cm; Wt 113.4 kg
[2020-01-16 20:30] VITALS: Ht 172.7 cm; Wt 113.4 kg
[2020-01-16 21:52] LABS: BASOPHIL % 1.1 % (0-2); RED CELL DISTRIBUTION WIDTH 14.2 % (11.5-14.5)
[2020-01-16 21:56] LABS: PLATELET COUNT 107 x10^3mcL (130-400)
[2020-01-16 22:03] LABS: CALCIUM 8.7 mg/dL (8.5-10.1); CARBON DIOXIDE 24.3 mmol/L (21-32); CHLORIDE SERUM 103 mmol/L (98-107); CREATININE SERUM 0.9 mg/dL (0.7-1.3); GFR1 > 60 mL/min; GLUCOSE SERUM 125 mg/dL (74-106); POTASSIUM SERUM 3.7 mmol/L (3.5-5.1); SODIUM SERUM 142 mmol/L (136-145)
[2020-01-16 22:07] LABS: ALBUMIN 3.5 g/dL (3.4-5.0); ALKALINE PHOSPHATASE 73 U/L (46-116); ALT/SGPT 61 U/L (16-63); AST/SGOT 50 U/L (15-37); BILIRUBIN TOTAL 0.8 mg/dL (0.20-1.00); CHOLESTEROL 193 mg/dL (<200); TOTAL PROTEIN, SERUM 6.4 g/dL (6.4-8.2)
[2020-01-17 00:13] VITALS: BP 110/71
== END 2020-01-17 00:13 | disposition home or self-care (01) ==
LOC: ED 20:30
PROVIDERS: Emergency Medicine
DX: G40.909 Epilepsy, unspecified, not intractable, without status epilepticus (principal); Z88.0 Allergy status to penicillin; Z98.890 Other specified postprocedural states
CPT/HCPCS: 82962; G0480

== ENCOUNTER 2020-01-31 12:22 | Emergency (ER) | payer OTHER ==
[~2020-01-31] VITALS: Ht 180.3 cm; Wt 99.8 kg
[2020-01-31 12:25] VITALS: Ht 180.3 cm; Wt 99.8 kg
[2020-01-31 13:20] LABS: BASOPHIL % 0.9 % (0-2); PLATELET COUNT 189 x10^3mcL (130-400)
[2020-01-31 13:26] LABS: CALCIUM 8.8 mg/dL (8.5-10.1); CARBON DIOXIDE 20.1 mmol/L (21-32); CHLORIDE SERUM 102 mmol/L (98-107); CREATININE SERUM 0.9 mg/dL (0.7-1.3); GFR1 > 60 mL/min; GLUCOSE SERUM 128 mg/dL (74-106); POTASSIUM SERUM 4.3 mmol/L (3.5-5.1); SODIUM SERUM 140 mmol/L (136-145)
[2020-01-31 13:28] LABS: RED CELL DISTRIBUTION WIDTH 14.6 % (11.5-14.5)
[2020-01-31 13:30] LABS: ALBUMIN 3.8 g/dL (3.4-5.0); ALKALINE PHOSPHATASE 74 U/L (46-116); ALT/SGPT 69 U/L (16-63); AST/SGOT 73 U/L (15-37); TOTAL PROTEIN, SERUM 7.2 g/dL (6.4-8.2)
[2020-01-31 14:45] LABS: microscopic required? NO
[2020-01-31 14:55] LABS: UA SPECIFIC GRAVITY 1.015 (1.005-1.035); urine erythrocyte NEGATIVE (NEGATIVE)
[2020-01-31 15:13] LABS: AMPHETAMINE QUAL UR POSITIVE (See below)
[2020-01-31 17:07] VITALS: BP 126/68
== END 2020-01-31 17:07 | disposition home or self-care (01) ==
LOC: ED 12:22
PROVIDERS: Emergency Medicine
DX: G40.909 Epilepsy, unspecified, not intractable, without status epilepticus (principal); F10.10 Alcohol abuse, uncomplicated; F15.10 Other stimulant abuse, uncomplicated; Z88.0 Allergy status to penicillin; Z98.890 Other specified postprocedural states
CPT/HCPCS: 82962; G0480; J1953; J2060; J7030

== ENCOUNTER 2020-03-03 20:41 | Emergency (ER) | payer OTHER, SELFPAY ==
[~2020-03-03] VITALS: Ht 177.8 cm; Wt 124.7 kg
[2020-03-03 20:42] VITALS: Ht 177.8 cm; Wt 124.7 kg
[2020-03-03 23:53] LABS: BASOPHIL % 0.6 % (0-2); PLATELET COUNT 152 x10^3mcL (130-400); RED CELL DISTRIBUTION WIDTH 14.3 % (11.5-14.5)
[2020-03-04 00:09] LABS: CALCIUM 8.4 mg/dL (8.5-10.1); CARBON DIOXIDE 25.2 mmol/L (21-32); CHLORIDE SERUM 100 mmol/L (98-107); GFR1 > 60 mL/min; GLUCOSE SERUM 105 mg/dL (74-106); POTASSIUM SERUM 3.4 mmol/L (3.5-5.1); SODIUM SERUM 136 mmol/L (136-145)
[2020-03-04 00:21] LABS: ALBUMIN 3.6 g/dL (3.4-5.0); ALKALINE PHOSPHATASE 82 U/L (46-116); ALT/SGPT 432 U/L (16-63); AST/SGOT 416 U/L (15-37); BILIRUBIN TOTAL 0.8 mg/dL (0.20-1.00); TOTAL PROTEIN, SERUM 7.4 g/dL (6.4-8.2)
[2020-03-04 01:10] VITALS: BP 128/78
== END 2020-03-04 01:10 | disposition home or self-care (01) ==
LOC: ED 20:41
PROVIDERS: Emergency Medicine
DX: U07.1 COVID-19 (principal); J12.89 Other viral pneumonia; G44.209 Tension-type headache, unspecified, not intractable; M10.9 Gout, unspecified
CPT/HCPCS: 36415; J1885; Q0092; U0003-CS

== ENCOUNTER 2020-03-22 17:08 | Emergency (ER) | payer OTHER ==
[~2020-03-22] VITALS: Ht 188 cm; Wt 86.2 kg
[2020-03-22 17:19] VITALS: Ht 188 cm; Wt 86.2 kg
[2020-03-22 19:07] LABS: CALCIUM 8.9 mg/dL (8.5-10.1); CARBON DIOXIDE 22.7 mmol/L (21-32); CHLORIDE SERUM 108 mmol/L (98-107); GFR1 > 60 mL/min; GLUCOSE SERUM 105 mg/dL (74-106); SODIUM SERUM 144 mmol/L (136-145)
[2020-03-22 19:11] LABS: BASOPHIL % 0.3 % (0-2); PLATELET COUNT 174 x10^3mcL (130-400)
[2020-03-22 19:12] LABS: RED CELL DISTRIBUTION WIDTH 14.6 % (11.5-14.5)
[2020-03-22 19:13] LABS: ALBUMIN 4.1 g/dL (3.4-5.0); ALKALINE PHOSPHATASE 89 U/L (46-116); ALT/SGPT 124 U/L (16-63); AST/SGOT 82 U/L (15-37); BILIRUBIN TOTAL 0.34 mg/dL (0.20-1.00)
[2020-03-22 20:23] VITALS: BP 129/71
== END 2020-03-22 20:23 | disposition home or self-care (01) ==
LOC: ED 17:08
PROVIDERS: Emergency Medicine
DX: F10.129 Alcohol abuse with intoxication, unspecified (principal); E86.0 Dehydration; Z88.0 Allergy status to penicillin
CPT/HCPCS: G0480

== ENCOUNTER 2020-04-01 20:34 | Emergency (ER) | payer OTHER ==
[~2020-04-01] VITALS: Ht 175.3 cm; Wt 136.1 kg
[2020-04-01 20:42] VITALS: Ht 175.3 cm; Wt 136.1 kg
[2020-04-01 22:00] LABS: BASOPHIL % 0.3 % (0-2); CALCIUM 7.8 mg/dL (8.5-10.1); CARBON DIOXIDE 20.8 mmol/L (21-32); CHLORIDE SERUM 102 mmol/L (98-107); CREATININE SERUM 0.9 mg/dL (0.7-1.3); GFR1 > 60 mL/min; GLUCOSE SERUM 160 mg/dL (74-106); PLATELET COUNT 145 x10^3mcL (130-400); POTASSIUM SERUM 3.4 mmol/L (3.5-5.1); RED CELL DISTRIBUTION WIDTH 14.7 % (11.5-14.5); SODIUM SERUM 138 mmol/L (136-145)
[2020-04-01 22:12] LABS: ALBUMIN 3.5 g/dL (3.4-5.0); ALKALINE PHOSPHATASE 83 U/L (46-116); ALT/SGPT 50 U/L (16-63); AST/SGOT 79 U/L (15-37); BILIRUBIN DIRECT 0.24 mg/dL (0.0-0.2); BILIRUBIN TOTAL 0.59 mg/dL (0.20-1.00); LIPASE 67 IU/L (73-393); TOTAL PROTEIN, SERUM 6.8 g/dL (6.4-8.2)
[2020-04-02 09:28] VITALS: BP 119/78
== END 2020-04-02 09:28 | disposition home or self-care (01) ==
LOC: ED 20:34
PROVIDERS: Student in an Organized Health Care Education/Training Program
DX: R51 Headache (principal); F10.129 Alcohol abuse with intoxication, unspecified; M62.82 Rhabdomyolysis
CPT/HCPCS: G0480; J0780; J2060; J7030

== ENCOUNTER 2020-04-06 11:53 | Inpatient (IN) | payer OTHER ==
[~2020-04-06] VITALS: Ht 172.7 cm; Wt 124.7 kg
[~2020-04-06 11:53] MED LIST changes: -LACTULOSE10 GM/152 PO
[2020-04-06 12:17] VITALS: Ht 172.7 cm; Wt 124.7 kg
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
--- NOTE | 2020-04-06 13:01 | NUR ---
EMT AT BEDSIDE FOR EKG
[2020-04-06 13:14] LABS: BASOPHIL % 0.3 % (0-2); PLATELET COUNT 127 x10^3mcL (130-400); RED CELL DISTRIBUTION WIDTH 15.5 % (11.5-14.5)
--- NOTE | 2020-04-06 13:23 | NUR ---
PT MOVED TO ROOM ORTHO AND PLACED IN GOWN ON FULL CARDIAC MONTIOR AND SIDE RAILS UP, SEIZURE PRECAUTIONS TAKEN AND PT HAS PERSONAL MEDS WITH HIM. LEVETRICETAM 1000MG AND LACTULOSE. PT REPORTS HE HAS NOT BEEN HOME TO HIS PARENTS HOUSE IN ABOUT 12 DAYS AND IS TRYING TO GET AHOLD OF HIS MOTHER TO COME HOME AND SHOWER. PT CARE HANDED OVER TO MARGIE WESTBROOK TO CONTINUE PT CARE AT THIS TIME.
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
[2020-04-06 13:43] LABS: CALCIUM 8.1 mg/dL (8.5-10.1); CHLORIDE SERUM 103 mmol/L (98-107); CREATININE SERUM 0.7 mg/dL (0.7-1.3); GFR1 > 60 mL/min; GLUCOSE SERUM 109 mg/dL (74-106); POTASSIUM SERUM 3.6 mmol/L (3.5-5.1); SODIUM SERUM 141 mmol/L (136-145)
[2020-04-06 13:47] LABS: ALKALINE PHOSPHATASE 93 U/L (46-116); ALT/SGPT 55 U/L (16-63); AST/SGOT 80 U/L (15-37); BILIRUBIN TOTAL 0.7 mg/dL (0.20-1.00); TOTAL PROTEIN, SERUM 6.7 g/dL (6.4-8.2)
[2020-04-06 13:48] LABS: ALBUMIN 3.2 g/dL (3.4-5.0)
--- NOTE | 2020-04-06 14:45 | NUR ---
PT IN RM WATCHING TV. IVF INFUSING ORDERED
[2020-04-06 15:05] LABS: microscopic required? NO
--- NOTE | 2020-04-06 15:31 | NUR ---
PT ON [place] NOTED. IVF INFUSING ORDERED.
--- NOTE | 2020-04-06 15:52 | NUR ---
FIRST LITER MICHAEL COMPLETED
[2020-04-06 16:00] LABS: UA SPECIFIC GRAVITY <=1.005 (1.005-1.035); urine erythrocyte NEGATIVE (NEGATIVE)
--- NOTE | 2020-04-06 17:05 | NUR ---
2ND LITER COMPLETED. NO CHANGES IN MENTATION STATUS. PT REMAINS ON FULL MONITORS.
--- NOTE | 2020-04-06 18:00 | NUR ---
PT ON RIOS WATCHING TV. FULL MONITORS IN PLACE. NAD NOTED
--- NOTE | 2020-04-06 19:11 | NUR ---
REPORT GIVEN TO CHANTAL HANSON
--- NOTE | 2020-04-06 19:12 | NUR ---
MD CARLISLE AT BEDSIDE DISCUSSING POC AND RESULTS AT THIS TIME.
[2020-04-06 19:15] LABS: T3 TOTAL 1.41 ng/mL
[2020-04-06 19:16] LABS: FREE T4 1.08 ng/dL (0.76-1.46); FREE THYROXINE INDEX 2.7 ug/dL (1.4-4.5); T4(THYROXINE) 8.5 ug/dL (4.7-13.3)
[2020-04-06 19:28] LABS: CHOLESTEROL/HDL RATIO 2.9; MAGNESIUM 1.9 mg/dL (1.8-2.4); PHOSPHOROUS 2.4 mg/dL (2.5-4.9)
--- NOTE | 2020-04-06 21:03 | NUR ---
SPOKE WITH LINDA HANSON AND GAVE HANDOFF REPORT. PT WILL BE TAKEN UPSTAIRS SOON.
--- NOTE | 2020-04-06 21:27 | NUR ---
Pharmacy jeremy at this time, stating that Ancef should be changed to flagyl or levaquin d/t pt. having allergy to penicillin. Will call resident at this time and cont. to monitor.
[2020-04-06 21:35] LABS: AMPHETAMINE QUAL UR NONE DETECTED (See below)
--- NOTE | 2020-04-06 21:35 | NUR ---
Spoke to MD at this time, let them know about the seizure medication and asked about fluids and about the the ancef at this time. Will cont. to monitor.
[2020-04-06 23:55] VITALS: BP 138/79
--- NOTE | 2020-04-07 | NUR ---
Pt. received from ER via [facility] w/ nurse and tech accompanying pt. Pt. is a/o x4, able to make needs known, able to follow commands, c/o h/a at this time, will medicate with tylenol as ordered. Pt. at this time is breathing e/u on Ra, no acute distress noted or SOb. Pt. lung sounds CTA. Pt. abd. distended adn firm at this time, pt. has no c/o pain or discomfort when urinating or passing BM. Pt. IV site patent on RAC 18g, dressing CDI and IV site patent. Pt. noted to have redness and edema on BLE, w/ some bruising on L inner thigh, and arden R foot abrasion. Pictures taken upon admission. Pt. otherwise stable at this time, no acute distress, needs anticipated, pt. call light placed within reach, pt. side rails padded d/t seizure precautions for seizure hx, bed set at lowest position, will cont. to monitor.
--- NOTE | 2020-04-07 | NUR ---
Pt. c/o of h/a at this time, will give tylenol as ordered. pt. also for CT scan, xray called, will be up 10 mins. Will cont. to monitor. Pt. noted to be resting throughout shift, no acute distress, just the h/a and stomach pain. Will cont. to monitor.
--- NOTE | 2020-04-07 00:54 | NUR ---
Pt. went down to CT scan, no acute dsitress noted, pt. states he still feels the h/a, offered ice pack, pt. okay with lights turned off and door clothes, otherwise, pt. stable, will cont. to monitor.
--- NOTE | 2020-04-07 04:05 | NUR ---
US called at this time, req. pt. is NPO for breakfast d/t US of abd in the AM, will cont. to monitor and endorse to next shift RN.
--- NOTE | 2020-04-07 05:15 | NUR ---
Pt. noted to be resting throughout shift, pt. did c/o severe h/a, noted [address] episode of nausea and dry heaving. Pt. received CT scan of BLE, electronics engineering technician at bedside and able to complete procedure. Pt. did receive Ct of head, no acute distress or SOB noted. Pt. able to make needs known, follow commands, will cont. to monitor and endorse care to next shift Rn.
[2020-04-07 06:04] VITALS: BP 154/84
[2020-04-07 06:55] LABS: BASOPHIL % 0.4 % (0-2)
[2020-04-07 07:00] LABS: PLATELET COUNT 87 x10^3mcL (130-400); RED CELL DISTRIBUTION WIDTH 15.9 % (11.5-14.5)
[2020-04-07 07:21] LABS: CALCIUM 7.4 mg/dL (8.5-10.1); CHLORIDE SERUM 104 mmol/L (98-107); CREATININE SERUM 0.7 mg/dL (0.7-1.3); GFR1 > 60 mL/min; GLUCOSE SERUM 96 mg/dL (74-106); MAGNESIUM 1.6 mg/dL (1.8-2.4); PHOSPHOROUS 2.7 mg/dL (2.5-4.9); POTASSIUM SERUM 3.7 mmol/L (3.5-5.1); SODIUM SERUM 141 mmol/L (136-145)
--- NOTE | 2020-04-07 07:30 | NUR ---
RECEIVED PT. IN BED A/A/O X3. NO SOB, NO N/V NOTED. PT. DENIES ANY PAIN AT THIS TIME. IV SITE NOTED TO [facility]. SEIZURE PRECAUTION MAINTAINED. BED IN LOW POS., CALL LIGHT WITHIN REACH. SIDE RAILS UP X3.
--- NOTE | 2020-04-07 08:15 | NUR ---
PT. APPEARS RESTLESS AND ANXIOUS; ATIVAN 1MG IV GIVEN.
[2020-04-07 09:15] VITALS: BP 134/81
--- NOTE | 2020-04-07 12:55 | NUR ---
PT. IS CHANGED TO TELE. STATUS PER PHYSICIAN'S ORDER. PT. IS BEING PLACED ON TELE. MONITOR #[id number], WHICH IS SHOWING SINUS TACHYCARDIA WITH THE H.R. RANGING BETWEEN 105 TO 115 BPM.
[2020-04-07 13:19] VITALS: BP 142/78
[2020-04-07 13:47] VITALS: BP 136/85
[2020-04-07 17:42] VITALS: BP 113/77
--- NOTE | 2020-04-07 17:50 | NUR ---
NASOPHARYNGEAL SWAB OBTAINED AND SENT TO LAB FOR COVID-19 TEST.
--- NOTE | 2020-04-07 19:24 | NUR ---
Pt. recieved from day shift, currently resting in bed. Pt. is a/o x4, able to make needs known, able to follow commands, c/o slight h/a but tolerable at this time. Pt. is breathing e/u on RA, no acute distress noted or SOB. Pt. tele now, noted to be tachy at times, no chest pain. Pt. noted to have edema to BLE and redness. Pt. LBM 04/06, poor appetite yesterday, will cont. to monitor, abd. distended and firm still, will cont. to monitor. Pt. noted to have BS urina, clear and yellow, slightly chris, with mild gen. weakness. Pt. IV site patent and dressing CDI, will cont. to monitor at this time.
[2020-04-07 21:29] VITALS: BP 140/84
--- NOTE | 2020-04-08 | NUR ---
Report given to MARGIE Spain at this time. All needs, questions, and concerns adressed. Will cont. to monitor.
--- NOTE | 2020-04-08 03:31 | NUR ---
@ 0030 A/A/O X4.DENIES ANY DISCOMFORT @ THIS TIME.DENIES SOB.IVF NS @ 100 ML/HR INFUSING WELL.RIGHT LEG REDDENED & WITH 2 + EDEMA.RIGHT LOWER LEG WITH KERLEX D/I. VOIDING FREELY THRU THE URINAL.
--- NOTE | 2020-04-08 03:36 | NUR ---
@ 0300 RESTING COMFORTABLY IN NO ACUTE DISTRESS.IVF INFUSING WELL.
[2020-04-08 05:14] VITALS: BP 115/86
--- NOTE | 2020-04-08 06:45 | NUR ---
ENDORSED IN NO ACUTE DISTRESS.IVF INFUSING WELL.NO SEIZURE NOTED OVER 12 HRS. SEIZURE PRECAUSION OBSERVED.CALL LIGHT WITHIN REACH.SAFETY MAINTAINED.
--- NOTE | 2020-04-08 07:08 | NUR ---
RECEIVED PT FROM POWER LINE INSTALLER NURSE. PT AOX4, RESP E/U RA. DENIES HEADACHE OR DIZZINESS, NO ACUTE DISTRESS NOTED AT THIS TIME. ON TELE 45 SHOWING SR, HR: 74. IV TO LAC RUNNING TKO AT THIS TIME W/ NO SIGNS OF INFILTRATION. BED IN LOWEST POSITION, PADDED SIDE RAILS UP X3, CALL LIGHT WITHIN REACH. WILL CONTINUE TO MONITOR.
[2020-04-08 07:17] LABS: BASOPHIL % 0.3 % (0-2)
[2020-04-08 07:36] LABS: CALCIUM 7.5 mg/dL (8.5-10.1); CARBON DIOXIDE 28.1 mmol/L (21-32); CHLORIDE SERUM 103 mmol/L (98-107); CREATININE SERUM 0.7 mg/dL (0.7-1.3); GFR1 > 60 mL/min; GLUCOSE SERUM 91 mg/dL (74-106); MAGNESIUM 1.7 mg/dL (1.8-2.4); PHOSPHOROUS 2.9 mg/dL (2.5-4.9); SODIUM SERUM 142 mmol/L (136-145)
[2020-04-08 07:39] LABS: POTASSIUM SERUM 2.8 mmol/L (3.5-5.1)
[2020-04-08 07:51] LABS: PLATELET COUNT 72 x10^3mcL (130-400); RED CELL DISTRIBUTION WIDTH 15.7 % (11.5-14.5)
[2020-04-08 09:20] VITALS: BP 105/58
[2020-04-08] MEDS ORDERED: CLEOCIN HCL300 MG PO (11:08)
[2020-04-08] MEDS ORDERED: KEP500 PO (11:10)
[2020-04-08] MEDS ORDERED: LAC30L PO (11:11)
[2020-04-08] MEDS ORDERED: FOL1 PO (11:11)
[2020-04-08] MEDS ORDERED: THI100 PO (11:11)
[2020-04-08] MEDS ORDERED: MVIL PO (11:12)
[2020-04-08 12:24] VITALS: BP 105/58
[2020-04-08] MEDS ORDERED: LACTULOSE10 GM/152 PO (12:33)
[2020-04-08 12:54] VITALS: BP 122/79
--- NOTE | 2020-04-08 13:00 | NUR ---
DISCHARGE DONE. REVIEWED DC PACKET, NEW RX MEDS AND F/U INSTRUCTIONS W/ PT, PT VERBALILZED UNDERSTANDING OF INSTRUCTIONS. PT AOX4, RESP E/U ON RA, VS STABLE, DENIES PAIN. IV TO LAC REMOVED, CATH INTACT, GAUZE APPLIED. PT AMBULATORY TO [facility] W/ NO ACUTE INCIDENCE.
== END 2020-04-08 13:51 | disposition home or self-care (01) | DRG 383 ==
LOC: ED 11:53 → MU 18:11 → DU 04-07 12:42
PROVIDERS: ADMIT Internal Medicine; ATTEND Internal Medicine
DX: L03.115 Cellulitis of right lower limb (principal); G92 Toxic encephalopathy; E44.1 Mild protein-calorie malnutrition; E83.39 Other disorders of phosphorus metabolism; M10.9 Gout, unspecified; F10.129 Alcohol abuse with intoxication, unspecified; Z20.828 Contact with and (suspected) exposure to other viral communicable diseases; Y90.9 Presence of alcohol in blood, level not specified; R56.9 Unspecified convulsions; Z68.41 Body mass index [BMI] 40.0-44.9, adult; Z88.0 Allergy status to penicillin
CPT/HCPCS: 82542; 83880; 84439; G0378; G0480; J2060; J2405; J3370; J3475; J3480; J3490; J7030; J7040; J7050; Q0092; U0003-CS

== ENCOUNTER 2020-04-27 22:11 | Emergency (ER) | payer OTHER ==
[~2020-04-27] VITALS: Ht 180.3 cm; Wt 131.5 kg
[~2020-04-27 22:11] MED LIST changes: +CLEOCIN HCL300 MG PO; +FOL1 PO; +LAC30L PO; +LACTULOSE10 GM/152 PO; +MVIL PO; +THI100 PO
[2020-04-27 22:31] VITALS: Ht 180.3 cm; Wt 131.5 kg
[2020-04-28 08:04] VITALS: BP 140/78
== END 2020-04-28 08:04 | disposition home or self-care (01) ==
LOC: ED 22:11
DX: F10.129 Alcohol abuse with intoxication, unspecified (principal); M10.9 Gout, unspecified; Z98.890 Other specified postprocedural states; Z88.0 Allergy status to penicillin; Y90.9 Presence of alcohol in blood, level not specified

== ENCOUNTER 2020-04-29 13:17 | Emergency (ER) | payer OTHER ==
[~2020-04-29] VITALS: Ht 175.3 cm; Wt 127.0 kg
[2020-04-29 13:25] VITALS: Ht 175.3 cm; Wt 127.0 kg
[2020-04-29 14:31] LABS: CALCIUM 7.6 mg/dL (8.5-10.1); CARBON DIOXIDE 20.7 mmol/L (21-32); CHLORIDE SERUM 104 mmol/L (98-107); CREATININE SERUM 0.7 mg/dL (0.7-1.3); GFR1 > 60 mL/min; GLUCOSE SERUM 100 mg/dL (74-106); POTASSIUM SERUM 3.6 mmol/L (3.5-5.1); SODIUM SERUM 140 mmol/L (136-145)
[2020-04-29 14:39] LABS: PLATELET COUNT 158 x10^3mcL (130-400); RED CELL DISTRIBUTION WIDTH 14.8 % (11.5-14.5)
[2020-04-29 14:43] LABS: ALKALINE PHOSPHATASE 91 U/L (46-116); ALT/SGPT 73 U/L (16-63); AST/SGOT 116 U/L (15-37); BILIRUBIN TOTAL 1.1 mg/dL (0.20-1.00); LIPASE 105 IU/L (73-393); MAGNESIUM 1.5 mg/dL (1.8-2.4); T4(THYROXINE) 7.3 ug/dL (4.7-13.3); TOTAL PROTEIN, SERUM 6.7 g/dL (6.4-8.2)
[2020-04-29 14:45] LABS: ALBUMIN 3.2 g/dL (3.4-5.0); CHOLESTEROL 210 mg/dL (<200)
[2020-04-29 16:55] VITALS: BP 145/103
== END 2020-04-29 16:55 | disposition home or self-care (01) ==
LOC: ED 13:17
PROVIDERS: Emergency Medicine
DX: G40.909 Epilepsy, unspecified, not intractable, without status epilepticus (principal); F41.9 Anxiety disorder, unspecified; Z88.0 Allergy status to penicillin; Z98.890 Other specified postprocedural states
CPT/HCPCS: 82962; 83880; G0480; J3411; J3475

== ENCOUNTER 2020-05-17 02:36 | Emergency (ER) | payer OTHER ==
[~2020-05-17] VITALS: Ht 172.7 cm; Wt 108.9 kg
[2020-05-17 02:45] VITALS: Ht 172.7 cm; Wt 108.9 kg
[2020-05-17 03:42] VITALS: BP 102/58
[2020-05-17 03:50] LABS: PLATELET COUNT 244 x10^3mcL (130-400)
[2020-05-17 04:00] LABS: BASOPHIL % 3.6 % (0-2); RED CELL DISTRIBUTION WIDTH 14.9 % (11.5-14.5)
[2020-05-17 04:05] LABS: CALCIUM 8.2 mg/dL (8.5-10.1); CARBON DIOXIDE 23.6 mmol/L (21-32); CHLORIDE SERUM 106 mmol/L (98-107); CREATININE SERUM 0.8 mg/dL (0.7-1.3); GFR1 > 60 mL/min; GLUCOSE SERUM 100 mg/dL (74-106); SODIUM SERUM 141 mmol/L (136-145)
[2020-05-17 04:10] LABS: ALBUMIN 3.8 g/dL (3.4-5.0); ALKALINE PHOSPHATASE 91 U/L (46-116); ALT/SGPT 190 U/L (16-63); AST/SGOT 166 U/L (15-37); BILIRUBIN TOTAL 0.5 mg/dL (0.20-1.00); TOTAL PROTEIN, SERUM 7.3 g/dL (6.4-8.2)
== END 2020-05-17 05:37 | disposition home or self-care (01) ==
LOC: ED 02:36
PROVIDERS: Emergency Medicine
DX: F10.129 Alcohol abuse with intoxication, unspecified (principal); Z88.0 Allergy status to penicillin
CPT/HCPCS: G0480

== ENCOUNTER 2020-05-21 20:26 | Emergency (ER) | payer OTHER ==
[~2020-05-21] VITALS: Ht 175.3 cm; Wt 108.9 kg
[2020-05-21 20:36] VITALS: Ht 175.3 cm; Wt 108.9 kg
[2020-05-21 22:00] LABS: BASOPHIL % 0.9 % (0-2); PLATELET COUNT 237 x10^3mcL (130-400)
[2020-05-21 22:07] LABS: CALCIUM 8.1 mg/dL (8.5-10.1); CARBON DIOXIDE 23.6 mmol/L (21-32); CHLORIDE SERUM 106 mmol/L (98-107); CREATININE SERUM 0.8 mg/dL (0.7-1.3); GFR1 > 60 mL/min; GLUCOSE SERUM 98 mg/dL (74-106); POTASSIUM SERUM 3.5 mmol/L (3.5-5.1); SODIUM SERUM 144 mmol/L (136-145)
[2020-05-21 22:11] LABS: RED CELL DISTRIBUTION WIDTH 14.7 % (11.5-14.5)
[2020-05-21 22:20] LABS: ALBUMIN 3.9 g/dL (3.4-5.0); ALKALINE PHOSPHATASE 99 U/L (46-116); ALT/SGPT 105 U/L (16-63); AST/SGOT 90 U/L (15-37); BILIRUBIN TOTAL 0.6 mg/dL (0.20-1.00); MAGNESIUM 2.1 mg/dL (1.8-2.4); TOTAL PROTEIN, SERUM 7.4 g/dL (6.4-8.2)
[2020-05-21 23:53] VITALS: BP 112/65
== END 2020-05-21 23:53 | disposition home or self-care (01) ==
LOC: ED 20:26
PROVIDERS: Specialist
DX: F41.9 Anxiety disorder, unspecified (principal); F10.129 Alcohol abuse with intoxication, unspecified; G40.909 Epilepsy, unspecified, not intractable, without status epilepticus; Z88.0 Allergy status to penicillin; Z98.890 Other specified postprocedural states
CPT/HCPCS: G0480

== ENCOUNTER 2020-06-04 21:50 | Emergency (ER) | payer OTHER ==
[~2020-06-04] VITALS: Ht 172.7 cm; Wt 109.3 kg
[2020-06-04 21:51] VITALS: Ht 172.7 cm; Wt 109.3 kg
[2020-06-05 01:27] LABS: BASOPHIL % 0.6 % (0-2); PLATELET COUNT 142 x10^3mcL (130-400); RED CELL DISTRIBUTION WIDTH 14.4 % (11.5-14.5)
[2020-06-05 01:59] LABS: AMPHETAMINE QUAL UR NONE DETECTED (See below)
[2020-06-05 02:21] LABS: CALCIUM 8.7 mg/dL (8.5-10.1); CARBON DIOXIDE 20.3 mmol/L (21-32); CHLORIDE SERUM 101 mmol/L (98-107); CREATININE SERUM 0.9 mg/dL (0.7-1.3); GFR1 > 60 mL/min; GLUCOSE SERUM 100 mg/dL (74-106); POTASSIUM SERUM 4.2 mmol/L (3.5-5.1); SODIUM SERUM 139 mmol/L (136-145)
[2020-06-05 02:25] LABS: ALBUMIN 4.4 g/dL (3.4-5.0); ALKALINE PHOSPHATASE 91 U/L (46-116); ALT/SGPT 222 U/L (16-63); AST/SGOT 186 U/L (15-37); BILIRUBIN TOTAL 0.4 mg/dL (0.20-1.00); MAGNESIUM 2.1 mg/dL (1.8-2.4)
[2020-06-05 03:42] VITALS: BP 102/63
== END 2020-06-05 03:42 | disposition home or self-care (01) ==
LOC: ED 21:50
PROVIDERS: Emergency Medicine
DX: R25.2 Cramp and spasm (principal); R51 Headache; Z88.0 Allergy status to penicillin; Z98.890 Other specified postprocedural states

== ENCOUNTER 2020-06-05 21:44 | Emergency (ER) | payer OTHER ==
[~2020-06-05] VITALS: Ht 180.3 cm; Wt 108.9 kg
[2020-06-05 21:54] VITALS: Ht 180.3 cm; Wt 108.9 kg
[2020-06-05 22:49] LABS: BASOPHIL % 1.8 % (0-2); PLATELET COUNT 171 x10^3mcL (130-400)
[2020-06-05 22:50] LABS: RED CELL DISTRIBUTION WIDTH 14.6 % (11.5-14.5)
[2020-06-05 23:37] LABS: CALCIUM 8.1 mg/dL (8.5-10.1); CARBON DIOXIDE 22.4 mmol/L (21-32); CHLORIDE SERUM 106 mmol/L (98-107); CREATININE SERUM 0.8 mg/dL (0.7-1.3); GFR1 > 60 mL/min; GLUCOSE SERUM 139 mg/dL (74-106); POTASSIUM SERUM 3.7 mmol/L (3.5-5.1); SODIUM SERUM 143 mmol/L (136-145)
[2020-06-05 23:43] LABS: ALBUMIN 3.8 g/dL (3.4-5.0); ALKALINE PHOSPHATASE 71 U/L (46-116); ALT/SGPT 161 U/L (16-63); AST/SGOT 124 U/L (15-37); BILIRUBIN TOTAL 0.5 mg/dL (0.20-1.00); MAGNESIUM 2.2 mg/dL (1.8-2.4); TOTAL PROTEIN, SERUM 7.2 g/dL (6.4-8.2)
[2020-06-06 07:08] VITALS: BP 111/69
== END 2020-06-06 07:08 | disposition home or self-care (01) ==
LOC: ED 21:44
PROVIDERS: Emergency Medicine
DX: G40.909 Epilepsy, unspecified, not intractable, without status epilepticus (principal); F10.129 Alcohol abuse with intoxication, unspecified; M10.9 Gout, unspecified; Z88.0 Allergy status to penicillin; Y90.8 Blood alcohol level of 240 mg/100 ml or more
CPT/HCPCS: 83880; G0480; J1953; J2060; J2405; J7030

== ENCOUNTER 2020-07-12 17:40 | Emergency (ER) | payer OTHER ==
[~2020-07-12] VITALS: Ht 180.3 cm; Wt 121.6 kg
[2020-07-12 18:14] VITALS: BP 149/92; Ht 180.3 cm; Wt 121.6 kg
== END 2020-07-12 21:46 | disposition left against medical advice (07) ==
LOC: ED 17:40
DX: Z53.21 Procedure and treatment not carried out due to patient leaving prior to being seen by health care provider (principal)

== ENCOUNTER 2020-07-20 06:55 | Emergency (ER) | payer OTHER ==
[~2020-07-20] VITALS: Ht 172.7 cm; Wt 121.1 kg
[2020-07-20 07:02] VITALS: Ht 172.7 cm; Wt 121.1 kg
[2020-07-20 07:53] LABS: BASOPHIL % 1.5 % (0-2); PLATELET COUNT 126 x10^3mcL (130-400); RED CELL DISTRIBUTION WIDTH 14.6 % (11.5-14.5)
[2020-07-20 08:12] LABS: CALCIUM 8.2 mg/dL (8.5-10.1); CARBON DIOXIDE 23.9 mmol/L (21-32); CHLORIDE SERUM 106 mmol/L (98-107); CREATININE SERUM 0.7 mg/dL (0.7-1.3); GFR1 > 60 mL/min; GLUCOSE SERUM 108 mg/dL (74-106); POTASSIUM SERUM 3.7 mmol/L (3.5-5.1); SODIUM SERUM 143 mmol/L (136-145)
[2020-07-20 08:16] LABS: ALBUMIN 3.6 g/dL (3.4-5.0); ALKALINE PHOSPHATASE 102 U/L (46-116); ALT/SGPT 69 U/L (16-63); AST/SGOT 85 U/L (15-37); BILIRUBIN TOTAL 0.95 mg/dL (0.20-1.00)
[2020-07-20 10:10] VITALS: BP 128/74
== END 2020-07-20 10:10 | disposition home or self-care (01) ==
LOC: ED 06:55
PROVIDERS: Emergency Medicine
DX: G40.909 Epilepsy, unspecified, not intractable, without status epilepticus (principal); G89.29 Other chronic pain; R51.9 Headache, unspecified; F10.20 Alcohol dependence, uncomplicated; Z88.0 Allergy status to penicillin
CPT/HCPCS: G0480; J1953; J2060; J3490

== ENCOUNTER 2020-08-09 11:32 | Emergency (ER) | payer OTHER ==
[~2020-08-09] VITALS: Ht 170.2 cm; Wt 90.7 kg
[2020-08-09 11:37] VITALS: Ht 170.2 cm; Wt 90.7 kg
[2020-08-09 12:21] LABS: CALCIUM 8.7 mg/dL (8.5-10.1); CARBON DIOXIDE 22.3 mmol/L (21-32); CHLORIDE SERUM 103 mmol/L (98-107); CREATININE SERUM 0.8 mg/dL (0.7-1.3); GFR1 > 60 mL/min; GLUCOSE SERUM 115 mg/dL (74-106); SODIUM SERUM 139 mmol/L (136-145)
[2020-08-09 12:26] LABS: ALBUMIN 3.8 g/dL (3.4-5.0); ALKALINE PHOSPHATASE 132 U/L (46-116); ALT/SGPT 116 U/L (16-63); AST/SGOT 106 U/L (15-37); BILIRUBIN TOTAL 1.03 mg/dL (0.20-1.00); TOTAL PROTEIN, SERUM 7.4 g/dL (6.4-8.2)
[2020-08-09 12:35] LABS: PLATELET COUNT 207 x10^3mcL (130-400)
[2020-08-09 12:43] LABS: BASOPHIL % 2.3 % (0-2); RED CELL DISTRIBUTION WIDTH 15.2 % (11.5-14.5)
[2020-08-09 15:36] VITALS: BP 133/71
== END 2020-08-09 15:37 | disposition home or self-care (01) ==
LOC: ED 11:32
PROVIDERS: Emergency Medicine
DX: F10.10 Alcohol abuse, uncomplicated (principal); M10.9 Gout, unspecified; Z20.828 Contact with and (suspected) exposure to other viral communicable diseases; Z88.0 Allergy status to penicillin
CPT/HCPCS: U0003

== ENCOUNTER 2020-09-28 00:14 | Emergency (ER) | payer OTHER ==
[~2020-09-28] VITALS: Ht 167.6 cm; Wt 106.6 kg
[2020-09-28 00:32] VITALS: Ht 167.6 cm; Wt 106.6 kg
[2020-09-28 01:49] LABS: CALCIUM 8.5 mg/dL (8.5-10.1); CARBON DIOXIDE 26.2 mmol/L (21-32); CHLORIDE SERUM 104 mmol/L (98-107); CREATININE SERUM 0.7 mg/dL (0.7-1.3); GFR1 > 60 mL/min; GLUCOSE SERUM 99 mg/dL (74-106); POTASSIUM SERUM 3.8 mmol/L (3.5-5.1); SODIUM SERUM 145 mmol/L (136-145)
[2020-09-28 03:52] VITALS: BP 137/80
== END 2020-09-28 03:52 | disposition home or self-care (01) ==
LOC: ED 00:14
PROVIDERS: Emergency Medicine
DX: G40.909 Epilepsy, unspecified, not intractable, without status epilepticus (principal); T51.91XA Toxic effect of unspecified alcohol, accidental (unintentional), initial encounter; Z88.0 Allergy status to penicillin; Y92.89 Other specified places as the place of occurrence of the external cause
CPT/HCPCS: G0480

== ENCOUNTER 2020-10-22 23:43 | Emergency (ER) | payer OTHER ==
[~2020-10-22] VITALS: Ht 167.6 cm; Wt 90.7 kg
[2020-10-22 23:47] VITALS: Ht 167.6 cm; Wt 90.7 kg
[2020-10-23 00:16] LABS: PLATELET COUNT 168 x10^3mcL (152-348); RED CELL DISTRIBUTION WIDTH 14.6 % (12.1-16.2)
[2020-10-23 00:25] LABS: CALCIUM 7.9 mg/dL (8.5-10.1); CARBON DIOXIDE 23.3 mmol/L (21-32); CHLORIDE SERUM 109 mmol/L (98-107); CREATININE SERUM 1.1 mg/dL (0.7-1.3); GFR1 > 60 mL/min; GLUCOSE SERUM 100 mg/dL (74-106); POTASSIUM SERUM 3.9 mmol/L (3.5-5.1); SODIUM SERUM 144 mmol/L (136-145)
[2020-10-23 00:29] LABS: MONOCYTE 8 % (0-7); SEGMENTED NEUTROPHILS 59 % (37-75); rbc morphology (normal/abnorm) NORMAL (NORMAL)
[2020-10-23 00:31] LABS: ALBUMIN 3.9 g/dL (3.4-5.0); ALKALINE PHOSPHATASE 107 U/L (46-116); ALT/SGPT 166 U/L (16-63); AST/SGOT 105 U/L (15-37); BILIRUBIN TOTAL 0.4 mg/dL (0.20-1.00); TOTAL PROTEIN, SERUM 7.5 g/dL (6.4-8.2)
[2020-10-23 02:06] VITALS: BP 102/64
== END 2020-10-23 02:06 | disposition home or self-care (01) ==
LOC: ED 23:43
PROVIDERS: Emergency Medicine
DX: G40.909 Epilepsy, unspecified, not intractable, without status epilepticus (principal); Z91.14 Patient's other noncompliance with medication regimen; Z88.0 Allergy status to penicillin
CPT/HCPCS: J2060

== ENCOUNTER 2020-11-03 01:10 | Emergency (ER) | payer OTHER ==
[~2020-11-03] VITALS: Ht 175.3 cm; Wt 122.5 kg
[2020-11-03 01:18] VITALS: Ht 175.3 cm; Wt 122.5 kg
[2020-11-03 01:48] LABS: CALCIUM 8.6 mg/dL (8.5-10.1); CARBON DIOXIDE 32.9 mmol/L (21-32); CHLORIDE SERUM 103 mmol/L (98-107); CREATININE SERUM 0.8 mg/dL (0.7-1.3); GFR1 > 60 mL/min; GLUCOSE SERUM 105 mg/dL (74-106); POTASSIUM SERUM 3.6 mmol/L (3.5-5.1); SODIUM SERUM 143 mmol/L (136-145)
[2020-11-03 05:11] VITALS: BP 124/77
== END 2020-11-03 06:07 | disposition home or self-care (01) ==
LOC: ED 01:10
PROVIDERS: Student in an Organized Health Care Education/Training Program
DX: G40.909 Epilepsy, unspecified, not intractable, without status epilepticus (principal); F10.129 Alcohol abuse with intoxication, unspecified; M10.9 Gout, unspecified; Z88.0 Allergy status to penicillin; Y90.8 Blood alcohol level of 240 mg/100 ml or more
CPT/HCPCS: 82962; G0480

== ENCOUNTER 2020-11-14 01:46 | Emergency (ER) | payer OTHER ==
[2020-11-14 01:54] VITALS: Ht 177.8 cm
[2020-11-14 02:25] LABS: BASOPHIL % 1.1 % (0.2-1.5); PLATELET COUNT 215 x10^3mcL (152-348)
[2020-11-14 02:26] LABS: RED CELL DISTRIBUTION WIDTH 14.8 % (12.1-16.2)
[2020-11-14 02:34] LABS: CALCIUM 8.7 mg/dL (8.5-10.1); CARBON DIOXIDE 26.1 mmol/L (21-32); CHLORIDE SERUM 101 mmol/L (98-107); CREATININE SERUM 1.1 mg/dL (0.7-1.3); GFR1 > 60 mL/min; GLUCOSE SERUM 98 mg/dL (74-106); POTASSIUM SERUM 3.9 mmol/L (3.5-5.1); SODIUM SERUM 140 mmol/L (136-145)
[2020-11-14 02:39] LABS: ALBUMIN 3.9 g/dL (3.4-5.0); ALKALINE PHOSPHATASE 103 U/L (46-116); ALT/SGPT 122 U/L (16-63); AST/SGOT 88 U/L (15-37); BILIRUBIN TOTAL 0.38 mg/dL (0.20-1.00); TOTAL PROTEIN, SERUM 7.7 g/dL (6.4-8.2)
[2020-11-14 04:40] LABS: microscopic required? NO
[2020-11-14 04:55] LABS: UA SPECIFIC GRAVITY >=1.030 (1.005-1.035); urine erythrocyte NEGATIVE (NEGATIVE)
[2020-11-14 05:03] LABS: AMPHETAMINE QUAL UR NONE DETECTED (See below)
[2020-11-14 09:49] VITALS: BP 120/75
== END 2020-11-14 10:35 | disposition home or self-care (01) ==
LOC: ED 01:46
PROVIDERS: Specialist
DX: G40.909 Epilepsy, unspecified, not intractable, without status epilepticus (principal); F10.129 Alcohol abuse with intoxication, unspecified; M10.9 Gout, unspecified; Z88.0 Allergy status to penicillin; Y90.8 Blood alcohol level of 240 mg/100 ml or more
CPT/HCPCS: G0480; J1953; J3411; J3475; J3490

== ENCOUNTER 2020-11-16 23:11 | Emergency (ER) | payer OTHER ==
[~2020-11-16] VITALS: Ht 172.7 cm; Wt 102.5 kg
[2020-11-16 23:20] VITALS: Ht 172.7 cm; Wt 102.5 kg
[2020-11-17 00:13] LABS: BASOPHIL % 0.8 % (0.2-1.5); PLATELET COUNT 178 x10^3mcL (152-348)
[2020-11-17 00:17] LABS: ALBUMIN 3.8 g/dL (3.4-5.0); ALKALINE PHOSPHATASE 96 U/L (46-116); ALT/SGPT 101 U/L (16-63); AST/SGOT 80 U/L (15-37); BILIRUBIN TOTAL 0.4 mg/dL (0.20-1.00); CALCIUM 8.7 mg/dL (8.5-10.1); CARBON DIOXIDE 28.8 mmol/L (21-32); CHLORIDE SERUM 101 mmol/L (98-107); CREATININE SERUM 0.7 mg/dL (0.7-1.3); GFR1 > 60 mL/min; GLUCOSE SERUM 95 mg/dL (74-106); POTASSIUM SERUM 3.4 mmol/L (3.5-5.1); SODIUM SERUM 138 mmol/L (136-145); TOTAL PROTEIN, SERUM 7.3 g/dL (6.4-8.2)
[2020-11-17 00:32] LABS: RED CELL DISTRIBUTION WIDTH 14.6 % (12.1-16.2)
[2020-11-17 00:36] LABS: rbc morphology (normal/abnorm) NORMAL (NORMAL)
[2020-11-17] MEDS ORDERED: KEPPRA500 MG PO (01:19)
[2020-11-17 01:44] VITALS: BP 111/71
== END 2020-11-17 01:44 | disposition home or self-care (01) ==
LOC: ED 23:11
PROVIDERS: Emergency Medicine
DX: F10.129 Alcohol abuse with intoxication, unspecified (principal); E87.6 Hypokalemia; R74.01 Elevation of levels of liver transaminase levels; Z88.0 Allergy status to penicillin
CPT/HCPCS: G0480

== ENCOUNTER 2020-11-20 02:07 | Emergency (ER) | payer OTHER ==
[~2020-11-20] VITALS: Ht 175.3 cm; Wt 122.5 kg
[2020-11-20 02:24] VITALS: Ht 175.3 cm; Wt 122.5 kg
[2020-11-20 04:18] LABS: BASOPHIL % 1.1 % (0.2-1.5); PLATELET COUNT 134 x10^3mcL (152-348)
[2020-11-20 04:19] LABS: RED CELL DISTRIBUTION WIDTH 14.6 % (12.1-16.2)
[2020-11-20 04:26] LABS: ALBUMIN 3.6 g/dL (3.4-5.0); ALKALINE PHOSPHATASE 83 U/L (46-116); ALT/SGPT 78 U/L (16-63); AST/SGOT 74 U/L (15-37); BILIRUBIN TOTAL 0.5 mg/dL (0.20-1.00); CALCIUM 8.1 mg/dL (8.5-10.1); CARBON DIOXIDE 25.3 mmol/L (21-32); CHLORIDE SERUM 106 mmol/L (98-107); CREATININE SERUM 0.7 mg/dL (0.7-1.3); GFR1 > 60 mL/min; GLUCOSE SERUM 102 mg/dL (74-106); LIPASE 94 IU/L (73-393); POTASSIUM SERUM 3.3 mmol/L (3.5-5.1); SODIUM SERUM 142 mmol/L (136-145); TOTAL PROTEIN, SERUM 6.9 g/dL (6.4-8.2)
[2020-11-20 08:35] VITALS: BP 100/62
== END 2020-11-20 08:35 | disposition home or self-care (01) ==
LOC: ED 02:07
PROVIDERS: Emergency Medicine
DX: K29.20 Alcoholic gastritis without bleeding (principal); F10.20 Alcohol dependence, uncomplicated; F17.210 Nicotine dependence, cigarettes, uncomplicated; M10.9 Gout, unspecified; Z88.0 Allergy status to penicillin; Y90.8 Blood alcohol level of 240 mg/100 ml or more
CPT/HCPCS: C9113; G0480; J2405; J3411; J3475; J3490; J7030

== ENCOUNTER 2020-12-01 22:00 | Emergency (ER) | payer OTHER ==
[~2020-12-01] VITALS: Ht 180.3 cm; Wt 122.5 kg
[2020-12-01 22:15] VITALS: Ht 180.3 cm; Wt 122.5 kg
[2020-12-01 23:09] LABS: BASOPHIL % 1.1 % (0.2-1.5); PLATELET COUNT 158 x10^3mcL (152-348)
[2020-12-01 23:13] LABS: RED CELL DISTRIBUTION WIDTH 14.9 % (12.1-16.2)
[2020-12-01 23:28] LABS: CALCIUM 8.8 mg/dL (8.5-10.1); CARBON DIOXIDE 23.5 mmol/L (21-32); CHLORIDE SERUM 99 mmol/L (98-107); CREATININE SERUM 1.1 mg/dL (0.7-1.3); GFR1 > 60 mL/min; GLUCOSE SERUM 99 mg/dL (74-106); SODIUM SERUM 138 mmol/L (136-145)
[2020-12-01 23:40] LABS: ALBUMIN 4.4 g/dL (3.4-5.0); ALKALINE PHOSPHATASE 92 U/L (46-116); ALT/SGPT 333 U/L (16-63); AST/SGOT 222 U/L (15-37); BILIRUBIN TOTAL 0.53 mg/dL (0.20-1.00)
[2020-12-02 00:40] VITALS: BP 125/77
[2020-12-02 00:55] LABS: AMPHETAMINE QUAL UR NONE DETECTED (See below)
== END 2020-12-02 00:40 | disposition left against medical advice (07) ==
LOC: ED 22:00
PROVIDERS: Emergency Medicine
DX: F10.129 Alcohol abuse with intoxication, unspecified (principal); R56.9 Unspecified convulsions; Z88.0 Allergy status to penicillin; Z98.890 Other specified postprocedural states
CPT/HCPCS: G0480; J2060; J3411; J7030